=== PATIENT | female | born 1985 | race Caucasian/White ===

== ENCOUNTER → 2017-09-11 12:02 | Outpatient (CLI) | payer OTHER, SELFPAY ==
[2017-09-11 12:28] LABS: Add Manual Diff / Slide Review NO; Basophils Percent Auto 0.3 % (0-2); Eosinophils Percent Auto 0.5 % (2-4); Hematocrit 37.5 % (36-46); Hemoglobin 12.7 g/dL (12.0-16.0); Lymphocytes Percent Auto 22.5 % (25-40); Mean Corpuscular HGB Conc 33.9 % (30-36); Mean Corpuscular Hemoglobin 31.5 PG (26-34); Mean Corpuscular Volume 93.1 fL (80-100); Monocytes Percent Auto 5.5 % (3-14); Neutrophils Absolute Auto 5400 /uL (3000-5900); Neutrophils Percent Auto 71.2 % (50-75); Platelet Count 280 X10^3/uL (150-400); Red Blood Cell Count 4.03 X10^6/uL (4.0-5.2); Red Cell Distribution Width 12.7 % (11.6-14.8); White Blood Cell Count 7.6 X10^3/uL (4.5-11.0)
[2017-09-11 13:14] LABS: Alanine Aminotransferase 22 IU/L (9-52); Albumin 4.4 g/dL (3.5-5.0); Albumin Globulin Ratio 1.5 (1.0-2.8); Alkaline Phosphatase 60 U/L (38-126); Aspartate Aminotransferase 18 IU/L (14-36); BUN Creatinine Ratio 12.5 (6-22); Bilirubin Total 0.5 mg/dL (0.2-1.3); Blood Urea Nitrogen 10 mg/dL (7-17); Calcium 9.7 mg/dL (8.4-10.2); Carbon Dioxide 29 mmol/L (22-32); Chloride 102 mmol/L (98-107); Estimated Glomerular Filt Rate > 60.0 mL/min (>60); Glucose 81 mg/dL (70-100); HEMOLYSIS < 15 (0-50); Potassium 4.3 mmol/L (3.4-5.1); Sodium 141 mmol/L (137-145); Total Protein 7.4 g/dL (6.3-8.2)
[2017-09-11 14:32] LABS: Monotest Negative (Negative)
== END ==
PROVIDERS: Internal Medicine; Family Provider Family Medicine; PCP Family Medicine; Visit Provider Specialist
DX: R53.83 Other fatigue (principal)
CPT/HCPCS: 36415; 80053; 85025; 86318

== ENCOUNTER → 2018-04-30 12:02 | Outpatient (CLI) | payer OTHER, SELFPAY ==
[2018-04-30 12:45] LABS: Alanine Aminotransferase 23 IU/L (9-52); Albumin Globulin Ratio 1.4 (1.0-2.8); Alkaline Phosphatase 68 U/L (38-126); Aspartate Aminotransferase 23 IU/L (14-36); BUN Creatinine Ratio 13.8 (6-22); Bilirubin Total 0.3 mg/dL (0.2-1.3); Blood Urea Nitrogen 11 mg/dL (7-17); Calcium 9.7 mg/dL (8.4-10.2); Carbon Dioxide 27 mmol/L (22-32); Chloride 102 mmol/L (98-107); Estimated Glomerular Filt Rate > 60.0 mL/min (>60); Globulin 3.6 g/dL (1.7-4.1); Glucose 89 mg/dL (70-100); HEMOLYSIS < 15 (0-50); Potassium 4.1 mmol/L (3.4-5.1); Sodium 140 mmol/L (137-145); Total Protein 8.6 g/dL (6.3-8.2)
[2018-04-30 13:09] LABS: Free T3, Triiodothyronine Free 3.66 pg/mL (2.77-5.27); Free T4, Direct Thyroxine 0.92 ng/dL (0.78-2.19)
[2018-04-30 13:23] LABS: Thyroid Stimulating Hormone 2.94 uIU/mL (0.47-4.68)
[2018-04-30 13:34] LABS: Vitamin B12 703 pg/mL (239-931)
[2018-04-30 15:27] LABS: Vitamin D 25 Hydroxy (D3) 38.3 ng/mL (30.0-100.0)
[2018-05-01 14:29] LABS: Anti Thyroglobulin Antibody < 1 IU/mL (< 2); Thyroid Peroxidase Antibodies 2 IU/mL (< 9)
[2018-05-07 15:03] LABS: Thyroid Peroxidase Antibodies 1
== END ==
PROVIDERS: Family Provider Family Medicine; PCP Family Medicine; Visit Provider Family Medicine
DX: R61 Generalized hyperhidrosis (principal)
CPT/HCPCS: 36415; 80053; 82306; 82607; 84439; 84443; 84481; 86376; 86800

== ENCOUNTER → 2018-06-21 07:48 | Outpatient (CLI) | payer OTHER, SELFPAY ==
[2018-06-21 09:41] LABS: Prolactin 14.8 ng/mL (3.0-18.6)
[2018-06-21 09:55] LABS: Cortisol AM (Before 10AM) 10.2 ug/dL (4.46-22.7)
[2018-06-21 10:04] LABS: Follicle Stimulating Hormone 2.62 mIU/mL
[2018-06-21 16:44] LABS: Luteinizing Hormone 2.23 mIU/mL
[2018-06-25 15:13] LABS: Dehydroepiandrosterone Sulfate 213 mcg/dL (23-266)
== END ==
PROVIDERS: PCP Family Medicine; Visit Provider Nurse Practitioner
DX: R53.83 Other fatigue (principal); N92.0 Excessive and frequent menstruation with regular cycle
CPT/HCPCS: 36415; 82533; 82627; 82670; 83001; 83002; 84146

== ENCOUNTER 2019-01-01 22:24 | Emergency (ER) | payer OTHER, SELFPAY ==
[2019-01-01 22:32] VITALS: BP 123/79; PULSE 94; RESP 15; TEMP 37.1; O2SAT 100
[2019-01-01 22:55] LABS: Add Manual Diff / Slide Review NO; Basophils Absolute Auto 0 /uL (0-100); Basophils Percent Auto 0.2 % (0-2); Eosinophils Absolute Auto 0 /uL (0-450); Eosinophils Percent Auto 0.3 % (2-4); Hematocrit 40.1 % (36-46); Hemoglobin 13.6 g/dL (12.0-16.0); Lymphocytes Absolute Auto 3100 /uL (1100-4500); Mean Corpuscular HGB Conc 33.9 % (30-36); Mean Corpuscular Hemoglobin 31.4 PG (26-34); Mean Corpuscular Volume 92.5 fL (80-100); Monocytes Absolute Auto 700 /uL (0-900); Neutrophils Absolute Auto 9700 /uL (1500-7000); Neutrophils Percent Auto 71.5 % (50-75); Platelet Count 277 X10^3/uL (150-400); Red Blood Cell Count 4.34 X10^6/uL (4.0-5.2); Red Cell Distribution Width 12.6 % (11.6-14.8); White Blood Cell Count 13.6 X10^3/uL (4.5-11.0)
--- NOTE | 2019-01-01 22:56 | DI.CT.S_ITS ---
PROCEDURE: CT ABDOMEN PELVIS W CON INDICATIONS: right sided abdominal pain TECHNIQUE: After the administration of intravenous contrast, 5 mm thick sections acquired from the diaphragm to the symphysis. 5 mm coronal and sagittal reformats were acquired. For radiation dose reduction, the following was used: automated exposure control, adjustment of mA and/or kV according to patient size. COMPARISON: [facility], , US PELVIC COMPLETE, 01/02/2019, 12:31. FINDINGS: Image quality: Excellent. ABDOMEN: Lung bases: Lung bases are clear. Heart size is normal. Solid organs: Liver is normal in size and enhancement. Gallbladder is normal. Biliary system is non dilated. Pancreas enhances normally. Spleen is normal in size and enhancement. No adrenal nodules. Kidneys demonstrate normal size and enhancement, without hydronephrosis. Peritoneum and bowel: Bowel loops demonstrate normal wall thickness and caliber. Fluid-filled small bowel loops are noted. Appendix is not clearly identified. No free air. There is a small amount of free fluid along the inferior margin of liver and in the right paracolic gutter. Nodes and vessels: No retroperitoneal or mesenteric adenopathy by size criteria. Aorta and inferior vena cava are normal in size. Miscellaneous: No ventral hernias. PELVIS: Genitourinary: Bladder wall thickness is normal. Uterus is normal. There is a 2.4 cm cyst in the left ovary. Right ovary is unremarkable. There is a boxfr-nx-yfqyaion amount of free fluid in the cul-de-sac, which is mildly complex. Miscellaneous: No inguinal hernias or adenopathy. Bones: No suspicious bony lesions. No vertebral body compression fractures. IMPRESSION: 1. Normal caliber fluid-filled small bowel loops are noted, which is nonspecific and suggests gastroenteritis. Recommend clinical correlation. 2. There is a ojssg-ew-wtfgrtqj amount of free fluid in the peritoneal cavity, most significant in the cul-de-sac where mildly complex free fluid is present. This finding may be secondary to ruptured, hemorrhagic ovarian cyst. A 2.4 cm left ovarian cyst. If clinically indicated, pelvic ultrasound may be obtained for further evaluation. 3. Nonvisualization of appendix. No significant discrepancy with the material handler 1st shift radiology preliminary report. Dictated by: Eduardo Holly M.D. on 01/02/2019 at 7:51 Transcribed by: NINA on 01/02/2019 at 8:00 Approved by: Eduardo Holly M.D. on 01/02/2019 at 8:18
--- NOTE | 2019-01-01 22:56 | ED_ITS ---
HPI - Abdominal Pain General Chief Complaint: Abdominal Pain Stated Complaint: Nausea/Diarrhea for 1 wk,sudden abd pain 2130 Time Seen by Provider: 01/01/19 22:40 Source: patient Mode of arrival: Ambulatory Limitations: no limitations History of Present Illness HPI narrative: Otherwise healthy 33-year-old female here for evaluation of bilateral lower abdominal pain. States that it started earlier this evening. S he has had approximately 1 week of nausea and some diarrhea. No fevers, no prior abdominal surgeries Related Data Home Medications Medication Instructions Recorded Confirmed prenat.vits,carlito,[id number] 1 tab PO DAILY 09/11/17 12/23/18 Previous Rx's Medication Instructions Recorded ondansetron 4 mg disintegrating 4 mg PO BID PRN #14 tab 12/23/18 tablet Allergies Allergy/AdvReac Type Severity Reaction Status Date / Time grass pollen-perennial rye, Allergy Mild sneezing, Verified 01/01/19 22:32 standar sinus [GRASS POLLEN-PERENNIAL RYE, cognestion STANDAR] dexamethasone [DEXAMETHASONE] AdvReac Intermediate Verified 01/01/19 22:32 dust Allergy Mild sneezing, Uncoded 06/05/18 12:06 nasal congestion Review of Systems Constitutional Constitutional: Denies fever(s) Cardiovascular Cardiovascular: Denies chest pain and Denies dyspnea Respiratory Respiratory: Denies dyspnea Gastrointestinal Gastrointestinal: Reports abdominal pain and Reports nausea Genitourinary Genitourinary: Denies dysuria and Denies vaginal discharge Musculoskeletal Musculoskeletal: Denies back pain and Denies arthralgias Integumentary/Breasts Skin/Breast: Denies rash Neurologic Neurologic: Denies behavioral changes Psychiatric Psychiatric: Denies behavioral changes Hematologic/Lymphatic Hematologic/Lymphatic: Denies easy bleeding and Denies easy bruising Patient History Medical History Chronic back pain (Chronic) Eczema (Chronic) History of bronchitis (Resolved) History of recurrent respiratory infection (Resolved) Overactive bladder (Chronic) Restless leg syndrome (Chronic) Surgical History (Updated 08/22/17 @ 09:34 by Annabelle Finney) Anesthesia complication (Inactive) Bartholin's cyst (Resolved ~2011) History of eye surgery (Resolved ~2010) History of third molar tooth extraction (~2006) History of vaginal surgery (Resolved ~2006) Status post delivery (~2013) Status post rhinoplasty (~2010) Family History Grandmother Cancer Social History Smoking Status: Never smoker alcohol intake frequency: a few times a week Substance Use Type: does not use Exam Initial Vital Signs Initial Vital Signs: Vital Signs Temperature 98.7 F 01/01/19 22:32 Pulse Rate 94 H 01/01/19 22:32 Respiratory Rate 15 01/01/19 22:32 Blood Pressure 123/79 01/01/19 22:32 Pulse Oximetry 100 01/01/19 22:32 Const General: cooperative and comfortable Orientation: alert, awake and oriented x3 HENMT Head: normal to inspection and normocephalic Resp Effort & Inspection: normal respiratory effort Auscultation: clear to auscultation bilaterally Cardio Rate: regular rate Rhythm: regular rhythm GI Inspection: non-distended Palpation: soft, No firm and tender (Bilateral lower abdomen) Skin General: no rashes or lesions noted Lesions: no lesions Rashes: no rashes Neuro General: alert and awake Cognition: normal cognition Speech: speech normal Extrem General: normal to inspection and capillary refill normal Psych Appearance: grossly normal and well kempt Course Orders Ordered: ED Orders 01/01/19 22:32 EKG-12 Lead Stat 01/01/19 22:40 Complete Blood Count AUTO DIFF Stat Comprehensive Metabolic Panel Stat Lipase Stat Partial Thromboplastin Time Stat Prothrombin Time INR Stat 01/01/19 22:56 CT abdomen pelvis w con Stat 01/02/19 00:06 US pelvic complete Stat Vital Signs Vital signs: Vital Signs - 8 hr 01/01/19 22:32 01/02/19 00:56 Temperature 98.7 F 98.4 F Pulse Rate 94 H 87 Respiratory Rate 15 Blood Pressure 123/79 Blood Pressure [Left Arm] 114/55 L Pulse Oximetry 100 99 MDM - Abdominal Pain Lab Data Attestation: I reviewed the patient's lab results. Result diagrams: 01/01/19 22:40 01/01/19 22:40 Labs: Lab Results 01/01/19 01/01/19 01/01/19 Range/Units 22:40 22:40 22:40 WBC 13.6 H (4.5-11.0) X10^3/uL RBC 4.34 (4.0-5.2) X10^6/uL Hgb 13.6 (12.0-16.0) g/dL Hct 40.1 (36-46) % MCV 92.5 (80-100) fL MCH 31.4 (26-34) PG MCHC 33.9 (30-36) % RDW 12.6 (11.6-14.8) % Plt Count 277 (150-400) X10^3/uL Neut % (Auto) 71.5 (50-75) % Lymph % (Auto) 23.0 L (25-40) % [place] % (Auto) 5.0 (3-14) % Eos % (Auto) 0.3 L (2-4) % Baso % (Auto) 0.2 (0-2) % Neut # (Auto) 9700 H (2250-2207) /uL Lymph # (Auto) 3100 (5295-2436) /uL [place] # (Auto) 700 (0-900) /uL Eos # (Auto) 0 (0-450) /uL Baso # (Auto) 0 (0-100) /uL PT 10.5 (10.1-12.7) SECONDS INR 0.9 (0.9-1.3) APTT 31 (26.4-36.2) SECONDS Sodium 139 (137-145) mmol/L Potassium 3.9 (3.4-5.1) mmol/L Chloride 101 (98-107) mmol/L Carbon Dioxide 23 (22-32) mmol/L BUN 20 H (7-17) mg/dL Creatinine 0.90 (0.52-1.04) mg/dL Estimated GFR > 60.0 (>60) mL/min BUN/Creatinine Ratio 22.2 H (6-22) Glucose 87 (70-100) mg/dL Calcium 9.6 (8.4-10.2) mg/dL Total Bilirubin 0.4 (0.2-1.3) mg/dL AST 27 (14-36) IU/L ALT 19 (<35) IU/L Alkaline Phosphatase 71 (38-126) U/L Total Protein 8.8 H (6.3-8.2) g/dL Albumin 5.2 H (3.5-5.0) g/dL Globulin 3.6 (1.7-4.1) g/dL Albumin/Globulin Ratio 1.4 (1.0-2.8) Lipase 130 (23-300) U/L Point of care testing: Point of Care Testing Test Results Negative Urine Dip Bedside Urine Glucose Negative Bedside Urine Bilirubin - Negative Bedside Urine Ketone +/- 5 Urine Specific [place] 1.025 Bedside Urine Occult Blood +/- Bedside Urine pH 6.0 Bedside Urine Protein - Negative Bedside Urine Urobilinogen - Negative Bedside Urine Nitrite - Negative Bedside Urine Leukocytes - Negative Esterase Imaging Data CT scan - abdomen: Radiologist's impression: Predominantly moderate pelvic and mild dependent abdominal free fluid that likely reflects hemorrhage without contained arterial extravasation that is of unclear source 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 Ultrasonography will be helpful for more definitive care dressing these findings in to assess whether they could be relevant to the patient's current condition Enteritis as described US - abdomen: Radiologist's impression: Intra ovarian complex cyst as described, likely hemorrhagic versus functional Likely free hemorrhage corresponding to the right adnexa and right cul-de-sac ECG Data Attestation: I personally reviewed and interpreted this ECG as follows: Prior ECG tracings: not available for review Interpretation: Sinus rhythm Ventricular rate of 93 Normal axis Normal QRS Normal QTC No ST T wave changes MDM Narrative Medical decision making narrative: Patient is a benign abdominal exam. She declined any offer of nausea or pain medication. The ultrasound shows a left- sided ovarian cyst with free fluid this is likely a hemorrhagic cyst. She also has enteritis. No indication for antibiotics. I did discuss these with the patient. She is 1 week away from starting her menstrual cycle. She was given return precautions and follow-up instructions. She expressed understanding and agreement plan. Discharge Plan Departure Patient Disposition: Home Clinical Impression: Ovarian cyst, Abdominal pain, Nausea, Enteritis Discharge Date/Time: 01/02/19 01:33 Instructions: DI for Ovarian Cyst Activity Restrictions/Additional Instructions: Continue all of your medications as directed. Contact your primary provider for a follow-up. Return to the emergency department for any new or worsening symptoms. Prescriptions: No Action ondansetron 4 mg tablet,disintegrating 4 mg PO BID PRN (Reason: nausea and vomiting) Qty: 14 RF: 0 prenat.vits,carlito,sel-gyxp-[id number] tablet 1 tab PO DAILY RF: 0 Referrals: Prashanth Pang MD [Primary Care Provider] - Stand Alone Forms: Work Release Note
[2019-01-01 23:00] LABS: INR 0.9 (0.9-1.3); Prothrombin Time 10.5 SECONDS (10.1-12.7)
[2019-01-01 23:02] LABS: PTT Partial Thromboplastin Tim 31 SECONDS (26.4-36.2)
[2019-01-01 23:06] LABS: Alanine Aminotransferase 19 IU/L (<35); Albumin 5.2 g/dL (3.5-5.0); Albumin Globulin Ratio 1.4 (1.0-2.8); Alkaline Phosphatase 71 U/L (38-126); Aspartate Aminotransferase 27 IU/L (14-36); BUN Creatinine Ratio 22.2 (6-22); Bilirubin Total 0.4 mg/dL (0.2-1.3); Blood Urea Nitrogen 20 mg/dL (7-17); Calcium 9.6 mg/dL (8.4-10.2); Carbon Dioxide 23 mmol/L (22-32); Chloride 101 mmol/L (98-107); Estimated Glomerular Filt Rate > 60.0 mL/min (>60); Globulin 3.6 g/dL (1.7-4.1); Glucose 87 mg/dL (70-100); HEMOLYSIS < 15 (0-50); Lipase 130 U/L (23-300); Potassium 3.9 mmol/L (3.4-5.1); Sodium 139 mmol/L (137-145); Total Protein 8.8 g/dL (6.3-8.2)
--- NOTE | 2019-01-02 00:06 | DI.US.S_ITS ---
PROCEDURE: US PELVIC COMPLETE INDICATIONS: FLUID ON CT TECHNIQUE: Real-time scanning was performed of the pelvic organs, with image documentation. Additional endovaginal scanning was necessary due to incomplete visualization of the adnexal and endometrial structures by transabdominal scanning. COMPARISON: [facility], CT, CT ABDOMEN PELVIS W CON, 01/01/2019, 22:55. FINDINGS: Transabdominal scanning: Limited scanning through the kidneys shows no hydronephrosis. No pathologic free abdominal or pelvic fluid. Endovaginal scanning: Uterus: Uterus is normal in size at 9.1 x 4.4 x 5.4 cm. The endometrium measures 13 mm in combined thickness. Ovaries: The left ovary contains a complex cystic mass measuring 3.0 x 2.7 x 2.3 cm with trace peripheral vascularity. There is normal vascularity in the stromal left ovary. Left ovary measures 3.9 x 3.2 x 3.8 cm in total. The right ovary measures 2.9 x 1.8 x 1.6 cm and has a normal follicular echotexture and vascularity. There is complex fluid and avascular material in the cul-de-sac suggesting hemorrhage with subsequent clot. IMPRESSION: 1. 3.0 cm complex left ovarian cyst suggesting hemorrhagic cyst with recent rupture. 2. Complex fluid and material suspicious for clot in the cul-de-sac. 3. Normal uterus and right ovary. Dictated by: Akilah Velez M.D. on 01/02/2019 at 8:47 Approved by: Akilah Velez M.D. on 01/02/2019 at 8:52
[2019-01-02 00:56] VITALS: BP 114/55; PULSE 87; TEMP 36.9; O2SAT 99
== END 2019-01-02 01:33 | disposition home or self-care (01) ==
PROVIDERS: Emergency Provider Emergency Medicine; Family Provider Family Medicine; PCP Family Medicine
DX: N83.202 Unspecified ovarian cyst, left side (principal); R10.9 Unspecified abdominal pain; R11.0 Nausea; K52.9 Noninfective gastroenteritis and colitis, unspecified
CPT/HCPCS: 36415; 74177; 76830; 76856; 80053; 81003; 81025; 83690; 85025; 85610; 85730; 93005; 93010; 99282; 99285; Q9967